=== PATIENT | female | born 1980 | race Caucasian/White ===

== ENCOUNTER → 2020-01-14 11:09 | Outpatient (CLI) | payer OTHER, SELFPAY ==
--- NOTE | ~2020-01-14 | XR_ITS ---
EXAMINATION: XR hip BI 2V w AP pelvis DATE: 01/14/2020 12:06 INDICATION: Arthropathic psoriasis, unspecified TECHNIQUE: AP view the pelvis and two views of each hip were obtained. COMPARISON: None. FINDINGS: Bone alignment is normal. There is no fracture. There is no abnormal sclerosis or erosion. The soft tissues are unremarkable. IMPRESSION: 1. No acute osseous abnormality. Reviewed, dictated and finalized at location A.
--- NOTE | ~2020-01-14 | XR_ITS ---
EXAMINATION: XR lumbar spine min 4V DATE: 01/14/2020 12:05 INDICATION: Arthropathic psoriasis, unspecified TECHNIQUE: Anteroposterior, lateral, and bilateral oblique views of the lumbar spine, and cone-down l ateral view of the lumbosacral junction were obtained. COMPARISON: None. FINDINGS: There is no fracture, dislocation, or subluxation. The vertebral body heights, alignment, a nd intervertebral disc spaces are normal. The paravertebral soft tissues are unremarkable. IMPRESSION: 1. Unremarkable lumbar spine. Reviewed, dictated and finalized at location A.
--- NOTE | ~2020-01-14 | XR_ITS ---
EXAMINATION: HAND-NEGIN ARTHRITIS 3+VIEWS DATE: 01/14/2020 12:06 INDICATION: Unspecified osteoarthritis at the bilateral hands with bilateral hand pain. TECHNIQUE: Posteroanterior, lateral, and oblique views of the left and of the right hands as well as a ballcatchers view of both hands were obtained. COMPARISON: None. FINDINGS: Alignment is normal at both hands and wrists. No fracture. Mild polyarticular osteoarthritis at multi ple distal interphalangeal joints characterized by slight nonuniform joint space narrowing and/or tin y marginal osteophytes. Likely degenerative subarticular cystic change at the radial side of the head of the right third middle phalanx. No erosions to suggest an inflammatory arthritis. Soft tissues ar e unremarkable. IMPRESSION: 1. Mild polyarticular osteoarthritis at multiple distal interphalangeal joints in both hands. Reviewed, dictated and finalized at location B.
== END ==
PROVIDERS: PCP Family Medicine; Visit Provider Internal Medicine
DX: L40.50 Arthropathic psoriasis, unspecified (principal); M19.90 Unspecified osteoarthritis, unspecified site; M19.042 Primary osteoarthritis, left hand; M19.041 Primary osteoarthritis, right hand
CPT/HCPCS: 72110; 73130; 73521

== ENCOUNTER → 2020-05-04 12:05 | Outpatient (CLI) | payer OTHER, SELFPAY ==
--- NOTE | ~2020-05-04 | MM_ITS ---
EXAMINATION: MM screening elpidio BI w naheed HISTORY: Screening mammogram TECHNIQUE: Craniocaudal and mediolateral oblique 3-D tomosynthesis images were obtained and synthetic 2-D images were generated. CAD analysis was submitted and interpreted. COMPARISON: None, baseline BREAST PARENCHYMAL COMPOSITION: The breasts are heterogeneously dense, which may obscure small masses . FINDINGS: RIGHT BREAST: There is no evidence of suspicious mass, calcification, or architectural distortion to suggest malignancy. LEFT BREAST: There is focal asymmetry in the upper quadrant the breast. No suspicious calcification o r architectural distortion are identified. IMPRESSION: 1. Left breast focal asymmetry. 2. Additional mammographic views and possible breast ultrasound are recommended to evaluate for malig brando and establish a baseline given that this is the first mammographic examination. BI-RADS Category 0: Incomplete: Needs additional imaging evaluation. Reviewed, dictated and finalized at location A. ROOM GROWER IMPRESSION: 1. Left breast focal asymmetry. 2. Additional mammographic views and possible breast ultrasound are recommended to evaluate for malignancy and establish a baseline given that this is the fir st mammographic examination. BI-RADS Category 0: Incomplete: Needs additional imaging evaluation.
== END ==
PROVIDERS: PCP Family Medicine; Visit Provider Nurse Practitioner Obstetrics & Gynecology
DX: Z12.31 Encounter for screening mammogram for malignant neoplasm of breast (principal); R92.8 Other abnormal and inconclusive findings on diagnostic imaging of breast
CPT/HCPCS: 77063; 77067

== ENCOUNTER 2021-11-22 06:48 | Outpatient (CLI) | payer OTHER, SELFPAY ==
[2021-11-22 07:26] LABS: Basophils Percent Auto 0.6 % (0.2-1.2); Eosinophils Absolute Auto 0.3 K/mm3 (0-0.3); Eosinophils Percent Auto 5.1 % (0-4.4); Hematocrit 34.9 % (37.0-47.0); Hemoglobin 10.7 g/dL (12.0-15.0); Immature Granulocyte Absolute 0.01 K/mm3 (0.00-0.031); Immature Granulocyte Percent A 0.2 % (0-0.5); Lymphocytes Absolute Auto 2.97 K/mm3 (0.9-3.2); Mean Corpuscular HGB Conc 30.7 g/dl (32-36); Mean Corpuscular Hemoglobin 28.5 pg (26-34); Mean Corpuscular Volume 92.8 fl (80-100); Mean Platelet Volume 9.2 fl (7.4-10.4); Monocytes Absolute Auto 0.7 K/mm3 (0.1-0.6); Neutrophils Absolute Auto 2.4 K/mm3 (1.3-6.7); Neutrophils Percent Auto 37.1 % (45.5-73.1); Platelet Count Result 328 k/mm3 (150-375); Red Blood Count 3.76 M/mm3 (4.2-5.4); Red Cell Distribution Width 15.2 % (11.5-14.5); White Blood Count 6.5 K/mm3 (4.5-10.0)
[2021-11-22 07:37] LABS: Prothrombin Time 12.9 Seconds (11.1-14.7)
[2021-11-22 07:48] LABS: Alanine Aminotransferase 35 U/L (6-35); Albumin Level 4.3 g/dL (3.5-5.1); Alkaline Phosphatase 54 U/L (38-126); Anion Gap 11 mmol/L (8-16); Aspartate Amino Transferase 48 U/L (14-36); Bilirubin,Total 0.1 mg/dL (0.2-1.3); Blood Urea Nitrogen 11 mg/dL (7-17); Calcium 8.7 mg/dL (8.4-10.2); Carbon Dioxide 28 mmol/L (22-30); Chloride 101 mmol/L (98-107); Estimated Glomerular Filt Rate > 60; Glucose 100 mg/dL (65-110); Potassium 4.1 mmol/L (3.4-5.0); Sodium 140 mmol/L (137-145)
--- NOTE | 2021-11-22 08:04 | ECG_ITS ---
Measurements Intervals [place] Rate: 90 P: 30 CO: 125 QRS: 22 QRSD: 106 T: 40 QT: 377 QTc: 462 Interpretive Statements SINUS RHYTHM WITH OCCASIONAL ECTOPIC PREMATURE COMPLEXES COMPARED TO ECG 09/19/2018 17:12:26 NO SIGNIFICANT CHANGES Electronically Signed On 11-22-2021 8:28:20 CDT by Sharan Frazier M.D.
== END 2021-11-22 06:49 | disposition home or self-care (01) ==
PROVIDERS: Visit Provider Obstetrics & Gynecology
DX: N92.0 Excessive and frequent menstruation with regular cycle (principal); D68.51 Activated protein C resistance; R73.03 Prediabetes
CPT/HCPCS: 36415; 80053; 85025; 85610; 85730; 86850; 86900; 86901; 93005

== ENCOUNTER 2021-11-23 00:34 | Day surgery (SDC) | payer OTHER, SELFPAY ==
[2021-11-21 12:35] VITALS: BMI 43.0
--- NOTE | 2021-11-21 12:44 | PC.NURSE ---
Report to the Outpatient Waiting Room, entrance under the green pavilion located off [facility], at time 0600__ on date _[id number]. OR Time: 729 . - You and your visitor will be asked to self-screen and do not enter if you have any COVID symptoms. - Only one visitor and NO children visitors are allowed at this time. - The patient visitor is requested to leave or wait in car when not with patient due to restrictions. - A mask is required within the hospital. Patients may have clear liquids (water, carbonated beverages, clear teas, apple juice) until 3 hours prior to surgery with a maximum of 20 ounces. - No food from midnight until time of surgery - Infants may have breast milk until 4 hours before surgery, infant formula 6 hours prior to surgery. - Children will be allowed to drink immediately following surgery. If applicable, please bring a bottle or sippy cup to assist with drinking. Juice, water, soda, and popsicles are readily available. For infants on formula, please bring formula the day of surgery. Pacifiers are allowed. Take the following medications with a SIP of water the morning of surgery: __BUPROPION, ESCITALOPAM Medications to discontinue per physician ___SUPPLIMENT/ VITAMINS 3 DAY, ASA 11/20/21 Date to take last dose Please no make-up, nail anguillan, hairspray, perfume, deodorant, or body powder the day of surgery. No jewelry (including any body piercings) or valuables the day of surgery, leave them at home. Please take a shower or bath the night before, or the morning of, surgery with an antibacterial soap. Wear comfortable, loose fitting clothing. Children are encouraged to wear pajamas. - Jewelry must be removed prior to entering the operating room. Rings and piercings that are not removed may be cut off. - The hospital will not accept responsibility for valuables. - Please leave all valuables, including medications, at home the day of surgery. If you are going home after surgery, a licensed escort car driver must drive you home. - NO public transportation without another adult. - We recommend that an adult stay with you for 24 hours following discharge. - We also recommend that you do not drive, make important decision, drink alcoholic beverages, or take any drugs that were not prescribed by your health care provider for at least 24 hours after your discharge time. For Pediatric surgeries, we recommend two adults accompany the child home (only one inside the building at this time). Follow any additional instructions given to you from your surgeon. If you or anyone in your household have experienced Covid symptoms in the past week, please notify your surgeon or the nurse liaison at the phone number below for possible testing. Telephone instructions given to ___PATIENT and asked if any additional questions and then verbalized understanding. Patient advised to call surgeon office or pre surgery nurse liaison [phone] if any additional questions.
--- NOTE | 2021-11-22 10:49 | WPDANESEPPF ---
Anes - Initial Pre Proc Eval Procedure: Operation Date: 11/23/21 07:30 Proposed Procedures p Total Laparoscopic Hysterectomy with Bilateral Salpingectomy - Mohsen Hubbard MD Date/Time: 11/22/21 10:49 Surgeon: Mohsen Hubbard MD Pre Op Diagnosis: menorrhagia Patient Data Age: 41 Gender: F Height: 1.6 m Weight: 110 kg Allergies Allergy/AdvReac Type Severity Reaction Status Date / Time No Known Allergies Allergy Verified 11/21/21 12:25 Home Medications Medication Instructions Recorded Confirmed Type aspirin 81 mg tablet,delayed 81 mg PO DAILY 02/20/19 11/21/21 History release clotrimazole 1 % topical ointment 1 applic topical BID #56.7 grams 10/02/19 11/21/21 Rx omeprazole 20 mg capsule,delayed See Rx Instructions .Route 12/27/20 11/21/21 Rx release .COMPLEX #30 caps escitalopram oxalate 20 mg tablet See Rx Instructions .Route 01/03/21 11/21/21 Rx .COMPLEX #30 tabs albuterol sulfate 90 mcg/actuation See Rx Instructions inhalation Q4H 03/01/21 11/21/21 Rx aerosol inhaler shortness of breath or wheezing #6.7 grams metformin 500 mg tablet,extended See Rx Instructions .Route 05/23/21 11/21/21 Rx release 24 hr .COMPLEX #180 tabs montelukast 10 mg tablet See Rx Instructions .Route 06/20/21 11/21/21 Rx .COMPLEX #90 tabs amitriptyline 25 mg tablet See Rx Instructions .Route 07/11/21 11/21/21 Rx .COMPLEX #90 tabs loratadine 10 mg tablet (Claritin) 10 mg PO DAILY #90 tabs 07/11/21 11/21/21 Rx buspirone 5 mg tablet See Rx Instructions .Route 08/16/21 11/21/21 Rx .COMPLEX #180 tabs Lactobacillus rhamnosus GG 10 1 cap PO DAILY 11/21/21 11/21/21 History billion cell capsule (Culturelle) acetaminophen 325 mg capsule 650 mg PO BID 11/21/21 11/21/21 History (Tylenol) ascorbic acid (vitamin C) 250 mg 250 mg PO DAILY 11/21/21 11/21/21 History tablet (Vitamin C) ferrous sulfate 325 mg (65 mg 65 mg PO DAILY 11/21/21 11/21/21 History iron) capsule,extended release melatonin 5 mg capsule 5 mg PO HS 11/21/21 11/21/21 History progesterone micronized 200 mg 200 mg PO HS 11/21/21 11/21/21 History capsule Patient hx anesthesia problems: none Family hx anesthesia problems: none Results Review: All pre-operative results and documents have been reviewed as part of the pre-operative evaluation. [facility] Past Medical History Medical History Daytime hypersomnolence Diverticulosis Factor 5 Leiden mutation, heterozygous Frequent headaches [place] (obstructive sleep apnea) Osteoarthritis Psoriatic arthritis Surgical History Surgical History Hx of colonoscopy Hx of tonsillectomy Family History Family History Grandparent Diabetes mellitus Mother High cholesterol Father Obesity Sleep apnea Grandparent Brain aneurysm Grandparent Kidney failure Social History Social History Smoking status: Never smoker Second hand tobacco smoke exposure: No Alcohol intake: never Substance use: never Substance use type: does not use Living arrangements: with friend(s) Gender identity (if verbalized by the patient): Female Sexual Orientation (if Verbalized by the Patient): Lesbian, King, or Homosexual Anes - Eval Final PreProcedure Day of Procedure 11/22/21 10:49 Patient weight: morbidly obese Heart: regular rate and rhythm Lungs: clear to auscultation Airway: Mallampati scale class III and special considerations poor dentition Neurological: alert and oriented Last oral intake: >/= 8 hours ASA classification: III Emergent: no Anesthetic plan: proceed Anesthesia type and monitoring: general ETT and standard monitoring Results Review: All pre-operative results and documents have been reviewed as part of the pre-operative eval
[2021-11-23] VITALS (12 sets, daily range): BP systolic 110–163; BP diastolic 58–86; PULSE 91–110; RESP 12–18; TEMP 36.4–37.3; O2SAT 88–100
--- NOTE | 2021-11-23 07:04 | WPDHPUPDATE1 ---
History and Physical Update Update Date/Time: 11/23/21 07:04 History and Physical has been reviewed, including an updated exam of the patient. There are NO changes in the patient's condition. Risks, benefits, and alternatives have been discussed and questions answered. Patient agrees to proceed with procedure.
[2021-11-23] MEDS: LACTATED RINGERS 1,000 ML 30 ML IV CONT ×2 (07:08→10:30)
[2021-11-23] MEDS: KETOROLAC 15 MG/ML VIAL (*BKC) IV PUSH (07:08)
--- NOTE | 2021-11-23 07:17 | PM.IMHP ---
H&P: HPI History of Present Illness Date/Time: 11/23/21 07:17 Chief Complaint: Vaginal bleeding Narrative: the patient is a 41-year-old female with severe menorrhagia. We have agreed to perform total laparoscopic hysterectomy and bilateral salpingectomy. She understands there is risk. She understands that injuries may occur that result in hospitalization, more surgery, severe illness. She understands there is risk of hemorrhage infection. Review of Systems Review of Systems: All systems reviewed & are unremarkable except as noted in HPI and below Constitutional: Constitutional: Denies chills, Denies fatigue, Denies fever(s) and Denies weakness Eyes: Eyes: Denies blurry vision, Denies change in vision, Denies loss of peripheral vision, Denies loss of vision, Denies other visual disturbances and Denies eye pain ENT: Denies vertigo, Denies dizziness, Denies hearing loss, Denies mouth pain, Denies nasal obstruction, Denies neck mass and Denies neck pain Cardiovascular: Cardiovascular: Denies chest pain, Denies diaphoresis, Denies syncope, Denies leg edema and Denies dyspnea Respiratory: Respiratory: Denies chest congestion, Denies cough, Denies hemoptysis, Denies dyspnea and Denies wheezing Gastrointestinal: Gastrointestinal: Denies abdominal pain, Denies constipation, Denies diarrhea, Denies nausea and Denies vomiting Genitourinary: Genitourinary: Denies hematuria, Denies change in libido, Denies nocturia, Denies genital lesions, Denies flank pain and Denies urinary urgency Musculoskeletal: Musculoskeletal: Denies abnormal gait, Denies back pain, Denies myalgias, Denies arthralgias, Denies joint swelling, Denies muscle weakness and Denies neck pain Integumentary/Breasts: Skin/Breast: Denies swelling, Denies breast pain, Denies breast mass, Denies dry skin, Denies nipple discharge, Denies unusual bruising and Denies jaundice Neurologic: Denies Neuro-related abnormal movements, Denies Abnormal speech present, Denies abnormal gait, Denies behavioral changes, Denies confusion, Denies vertigo, Denies dizziness, Denies syncope, Denies loss of vision, Denies memory loss, Denies convulsions and Denies weakness Psychiatric: Psychiatric: Denies abnormal sleep pattern, Denies behavioral changes, Denies change in libido, Denies confusion, Denies depression, Denies anhedonia and Denies memory loss Endocrine: Endocrine: Reports no additional endocrine complaints, Denies change in libido and Denies fatigue Hematologic/Lymphatic: Hematologic/Lymphatic: Reports no additional hematologic/lymphatic complaints Allergic/Immunologic: Allergic/Immunologic: Reports no additional allergic/immunologic complaints and Denies wheezing [facility] Past Medical History Medical History Daytime hypersomnolence Diverticulosis Factor 5 Leiden mutation, heterozygous Frequent headaches [place] (obstructive sleep apnea) Osteoarthritis Psoriatic arthritis Surgical History Surgical History Hx of colonoscopy Hx of tonsillectomy Family History Family History Grandparent Diabetes mellitus Mother High cholesterol Father Obesity Sleep apnea Grandparent Brain aneurysm Grandparent Kidney failure Social History Social History Smoking status: Never smoker Second hand tobacco smoke exposure: No Alcohol intake: never Substance use: never Substance use type: does not use Living arrangements: with friend(s) Gender identity (if verbalized by the patient): Female Sexual Orientation (if Verbalized by the Patient): Lesbian, King, or Homosexual Meds Home Medications and Allergies Home Medications Medication Instructions Recorded Confirmed Type aspirin 81 mg tablet,delayed 81 mg PO DAILY 02/20/1911/21
[2021-11-23 07:23] LABS: Glucose Point of Care 96 mg/dl (65-105)
[2021-11-23] MEDS: ceFAZolin 2 GM/D5W 50 ML 2 GM/50 ML BAG IVPB (07:30)
[2021-11-23] MEDS: ceFAZolin SODIUM 1 GM VIAL IRRIGATION (08:05)
[2021-11-23] MEDS: ceFAZolin SODIUM 1 GM VIAL (08:25)
--- NOTE | 2021-11-23 10:28 | W.PM.PROC2 ---
Procedure Note - Detailed Date of Procedure 11/23/21 Pre-op Diagnosis menorrhagia Post-op Diagnosis Same Procedure Performed Total laparoscopic hysterectomy, bilateral salpingectomy, left oophorectomy. Surgeon Mohsen Hubbard MD Anesthesia General Indications Severe menorrhagia Findings Enlarged fibroid uterus, normal-appearing fallopian tubes, scarred and right vascular left ovary Description of Procedure This patient was taken to the operating room. She was prepped and draped in the dorsal lithotomy position after induction of general anesthesia. The uterine manipulator and Chio cup were placed. This was done with a speculum and tenaculum. The speculum was placed. The cervix was grasped with a tenaculum. The stay sutures were placed at 3 and 9:00 a.m.. The stay sutures of 0 Vicryl were brought through the appropriately sized Chio cup. The tip of the MERON manipulator was placed in the intrauterine cavity. The cup was slid into place around the cervix and into the fornices. It was locked into place. The sutures were then wrapped around the handle and tied under tension. A 5 mm skin incision was made in the left upper quadrant the abdomen. A 5 mm trocar was inserted into the intrauterine cavity under direct visualization of the scope. Pneumoperitoneum was achieved. A left lower quadrant 11 mm incision was made with scalpel. An 11 mm trocar was inserted into the anterior abdominal cavity under direct visualization the scope. A 5 mm infraumbilical incision was made with a scalpel and a 5 mm trocar was inserted the intra-abdominal cavity under direct visualization of the scope. Bilateral ureteral lysis was performed. This was done from the pelvic brim down to the uterine artery. This was done with careful dissection using sharp and blunt dissection. The fallopian tubes were removed bilaterally. The mesosalpinx around the fallopian tubes were cauterized transected with LigaSure cautery. This was done in a bilateral fashion from the ovary to the uterine cornua. The fallopian tube was transected at the uterine cornu and amputated. The tube was taken out the left lower quadrant trocar site. In a stepwise fashion along the lateral aspects of the uterus the round ligament and broad ligaments were cauterized transected down to the level of the uterine arteries. A bladder flap was created in the bladder was moved distally to the end of the cervix and over the Chio cup. The bilateral uterine arteries were cauterized and transected. Colpotomy was then performed. In a circumferential fashion the vagina was transected using unipolar cautery. The incision was made down on the Chio cup. The uterus and cervix were taken out through the vagina. A pneumo occluder was placed in the vagina. The vaginal cuff was closed with a 0 V lock suture in a running fashion. Bleeding was persistent around the left ovary. It was also very scarred down and very vascular. It was removed by cauterizing the infundibulopelvic ligament and transecting it and dissecting out the ovary from the left pelvic sidewall. It was placed in endobag and taken out the left lower quadrant trocar site. The pelvis was irrigated with copious amounts antibiotic irrigation. The ureters were again examined and found to be intact and flowing freely under the uterine arteries into the bladder. The bladder was intact. It was examined directly. The vagina was irrigated with Betadine solution after removal of the Pneumo occluder. The patient was taken to recovery room. She was stable condition. Sponge lap and needle counts were correct x2. Estimated Blood Loss 250 Drains Yes Packing No Pathology Yes Complications No immediate complications Condition Stable Disposition Floor
[2021-11-23 11:11] LABS: Glucose Point of Care 143 mg/dl (65-105)
--- NOTE | 2021-11-23 11:45 | ADMGEN ---
This patient, Akiko Barahona, was transferred to post room #289 per bed from PACU.
[2021-11-23] MEDS: DEXTROSE 5%/0.45% SOD CHL 1,000 ML 125 ML IV CONT (12:13)
[2021-11-23] MEDS: KETOROLAC 30 MG/ML VIAL (*BKC) IV PUSH (13:36)
[2021-11-23] MEDS: PROPARACAINE HCL 0.5% 15 ML OPHTH SOLN 1 DROP EACH EYE (14:48)
[2021-11-23] MEDS: DICLOFENAC SODIUM 0.1% OPHTH SOLN 2.5 ML BOTTLE 1 DROP EACH EYE (14:53)
[2021-11-23] MEDS: ARTIFICIAL TEARS OPHTH SOLN 15 ML BOTTLE 1 DROP EACH EYE ×2 (14:53→17:52)
[2021-11-23] MEDS: busPIRone HCL 5 MG TABLET BY MOUTH (17:50)
[2021-11-23] MEDS: ESCITALOPRAM OXALATE 10 MG TABLET 20 MG BY MOUTH (17:50)
[2021-11-23] MEDS: HYDROcodone/acetaminophen (*CRX) 5-325 MG TABLET 1 TAB PO (20:04)
[2021-11-23] MEDS: IBUPROFEN 600 MG TABLET PO (20:04)
[2021-11-24 04:45] VITALS: BP 93/50; PULSE 94; RESP 18; TEMP 36.6; O2SAT 100
[2021-11-24] MEDS: IBUPROFEN 600 MG TABLET PO (07:41)
[2021-11-24] MEDS: HYDROcodone/acetaminophen (*CRX) 5-325 MG TABLET 1 TAB PO (07:41)
--- NOTE | 2021-11-24 07:49 | PM.GYNPNOP ---
MECHANICAL MAINTENANCE WORKER - A/P Postoperative Procedures: Procedures Operation Date: 11/23/21 07:30 Actual Procedure Side Surgeon p Total Laparoscopic Hysterectomy with Bilateral Salpingectomy,Left Oophorectomy Left R. John Hubbard MD Postoperative day: 1 Postoperative status: doing well Postoperative plan: see orders Time Spent With Patient Time: Total time spent is greater than 50% in coordination of care (as documented) at patient's floor/unit and/or counseling patient: Time with patient: less than 15 minutes MECHANICAL MAINTENANCE WORKER- PN:Subj Post-Op Subjective Date/time seen: 11/24/21 07:49 Subjective: patient reports feeling better, patient has no complaints and pain is well controlled Exam Const: General: healthy appearing, comfortable and no acute distress Resp: Auscultation: clear to auscultation bilaterally, no rales, no rhonchi and no wheezes Cardio: Rate: regular rate Heart sounds: no click, no murmurs and no rubs GI: Inspection: non-distended Auscultation: normal bowel sounds Extrem: General: normal to inspection, no pedal edema and no calf tenderness MECHANICAL MAINTENANCE WORKER - PN: Obj Data Vital Signs Vital Signs: Vital Signs - 24 hr 11/23/21 10:30 11/23/21 10:45 11/23/21 11:00 Temperature 97.9 F Pulse Rate 101 H 91 99 Respiratory Rate 16 14 12 Blood Pressure 163/86 H 126/75 134/69 Pulse Oximetry 95 94 98 Oxygen Delivery Simple Face Mask Simple Face Mask Simple Face Mask Oxygen Flow Rate 8 8 8 11/23/21 11:07 11/23/21 11:15 11/23/21 11:30 Temperature Pulse Rate 97 97 Respiratory Rate 12 14 Blood Pressure 137/73 139/75 Pulse Oximetry 88 L 94 92 Oxygen Delivery Room Air Nasal Cannula Nasal Cannula Oxygen Flow Rate 2 2 11/23/21 11:09 11/23/21 12:00 11/23/21 12:00 Temperature 98 F Pulse Rate 96 Respiratory Rate 18 Blood Pressure 131/67 Pulse Oximetry 93 98 98 Oxygen Delivery Nasal Cannula Nasal Cannula Oxygen Flow Rate 2 2 11/23/21 16:00 11/23/21 16:00 11/23/21 20:00 Temperature 98.5 F 99.2 F Pulse Rate 94 96 Respiratory Rate 16 18 Blood Pressure 134/79 134/78 Pulse Oximetry 97 97 98 Oxygen Delivery Nasal Cannula Oxygen Flow Rate 1 11/23/21 20:00 11/23/21 23:30 11/23/21 23:30 Temperature 98.6 F Pulse Rate 96 110 H 110 H Respiratory Rate 18 18 18 Blood Pressure 110/58 L Pulse Oximetry 98 100 100 Oxygen Delivery Room Air Room Air Oxygen Flow Rate 11/24/21 04:45 11/24/21 04:45 Temperature 98 F Pulse Rate 94 94 Respiratory Rate 18 18 Blood Pressure 93/50 L Pulse Oximetry 100 100 Oxygen Delivery Room Air Oxygen Flow Rate Intake/Output Intake/Output: Intake & Output 11/21/21 11/22/21 11/23/21 11/24/21 23:59 23:59 23:59 23:59 Intake Total 670 200 Output Total 1140 1000 Balance -470 -800 Meds/Results Medications: Active Medications Generic Name Dose Route Start Last Admin Trade Name Freq PRN Reason Stop Dose Admin Hydrocodone Bitart/Acetaminophen 1 tab 11/23/21 11:38 11/24/21 07:41 Hydrocodone/Acetaminophen (*Crx) 5-325 Mg Tablet PO 1 tab Q3H PRN Administration Pain Rated 5 or Less Hydrocodone Bitart/Acetaminophen 1 tab 11/23/21 11:38 Hydrocodone/Acetaminophen (*Crx) 10-325 Mg Tablet PO Q3H PRN Pain Rated 6 or Greater Albuterol 0 puff 11/23/21 11:38 Albuterol Sulfate (*Sp) Aerosol 1 Puff INHALATION Q4H PRN SOB/WHEEZING Artificial Tears 1 drop 11/23/21 14:00 11/23/21 17:52 Artificial Tears Ophth Soln 15 Ml Bottle EACH EYE 1 drop Q2HR PRN Administration Dry Eye(s) Buspirone HCl 5 mg 11/23/21 11:38 11/24/21 07:48 Buspirone Hcl 5 Mg Tablet BY MOUTH Not Given BID MONY Diclofenac Sodium 1 drop 11/23/21 22:00 11/24/21 07:45 Diclofenac Sodium 0.1% Ophth Soln 2.5 Ml Bottle EACH EYE 11/27/21 21:59 Not Given Q8HR MONY Escitalopram Oxalate 20 mg 11/23/21 11:38 11/24/21 07:48 Escitalopram Oxalate 10 Mg Tablet BY MOUTH Not Given DAILY [facility] Dextrose/Sodium Chlori
[2021-11-24 08:00] VITALS: BP 128/73; PULSE 92; RESP 18; TEMP 36.4; O2SAT 100
== END 2021-11-24 10:05 | disposition home or self-care (01) ==
LOC: ANHSURGERY 06:22 → ANHOB2 11:42
PROVIDERS: PCP Nurse Practitioner; Visit Provider Obstetrics & Gynecology
PROC: 0UT9FZZ Resection of Uterus, Via Natural or Artificial Opening With Percutaneous Endoscopic Assistance (ICD-10-PCS; CPT 58573; principal; 2021-11-23 07:30)
DX: N92.0 Excessive and frequent menstruation with regular cycle (principal); D25.9 Leiomyoma of uterus, unspecified; N84.0 Polyp of corpus uteri; Z79.82 Long term (current) use of aspirin; Z79.51 Long term (current) use of inhaled steroids; Z79.84 Long term (current) use of oral hypoglycemic drugs; D68.51 Activated protein C resistance; G47.33 Obstructive sleep apnea (adult) (pediatric); M19.90 Unspecified osteoarthritis, unspecified site; L40.50 Arthropathic psoriasis, unspecified
CPT/HCPCS: 58573; 82948; 88307; 99199; A9270; J0330; J0690; J1100; J1170; J1885; J2250; J2370; J2405; J2704; J2710; J3010; J7030; J7120